=== PATIENT | female | born 1950 | race Caucasian/White ===

== ENCOUNTER 2021-12-12 09:08 | Inpatient (IN) | payer OTHER ==
[2021-12-12 10:56] VITALS: BMI 26.2
[2021-12-12] MEDS: Lactated Ringer's 1,000 ML IV SCH ×3 (11:32→21:59)
[2021-12-12] MEDS: HYDROcodone/Acetaminophen 5/325 mg Tablet PO PRN ×2 (13:12→19:28)
[2021-12-12] MEDS: metroNIDAZOLE 500 MG in Premix Bag 1 BAG IVPB SCH ×2 (13:13→21:55)
[2021-12-12] MEDS: Pantoprazole 40 MG VIAL IVP SCH (19:28)
[2021-12-12] MEDS: Ondansetron PF 4 MG/2 ML Vial IVP PRN (20:42)
[2021-12-13] MEDS: Lactated Ringer's 1,000 ML IV SCH ×5 (03:13→19:00)
[2021-12-13 04:28] LABS: ALT (SGPT) 22 U/L (8-55); AST (SGOT) 26 U/L (5-34); Albumin 3.4 g/dL (3.4-4.8); Alkaline Phosphatase 66 U/L (40-110); Anion Gap 12 mmol/L (10-20); BUN (Urea Nitrogen) 11 mg/dL (9.8-20.1); Bilirubin, Total 0.4 mg/dL (0.2-1.2); Calc. Creatinine Clearance 67 mL/min (70-130); Calcium 8.3 mg/dL (7.8-10.44); Carbon Dioxide 22 mmol/L (23-31); Chloride 109 mmol/L (98-107); Estimated GFR 86; Globulin 1.9 g/dL (2.4-3.5); Glucose 100 mg/dL (80-115); Potassium 3.7 mmol/L (3.5-5.1); Protein, Total 5.3 g/dL (5.8-8.1); Sodium 139 mmol/L (136-145)
[2021-12-13 05:03] LABS: #Eosinphils 0.3 thou/uL (0.0-0.7); #Lymphocytes 2.7 thou/uL (1.20-3.40); #Monocytes 0.6 thou/uL (0.11-0.59); %Basophils 0.3 % (0.0-1.0); %Eosinophils 2.8 % (0.0-10.0); %Lymphocytes 23.3 % (21.0-51.0); %Monocytes 5.4 % (0.0-10.0); %Neutrophils 68.2 % (42.0-75.0); Hemoglobin 11.9 g/dL (12.0-16.0); Mean Corpuscular HGB CONC 31.7 g/dL (32.0-36.0); Mean Corpuscular Hemoglobin 32.7 pg (27.0-31.0); Mean Platelet Volume 7.7 fL (7.4-10.4); Platelet Count 184 thou/uL (130-400); RBC Distribution Width 11.6 % (11.5-14.5); Red Blood Cell (RBC) Count 3.65 mill/uL (4.20-5.40); White Blood Cell (WBC) Count 11.8 thou/uL (4.8-10.8)
[2021-12-13] MEDS: metroNIDAZOLE 500 MG in Premix Bag 1 BAG IVPB SCH ×3 (05:55→21:19)
[2021-12-13] MEDS: Pantoprazole 40 MG VIAL IVP SCH ×2 (08:38→20:24)
[2021-12-13] MEDS: HYDROcodone/Acetaminophen 5/325 mg Tablet PO PRN (09:02)
[2021-12-13] MEDS: Ondansetron PF 4 MG/2 ML Vial IVP PRN (09:02)
[2021-12-13 12:07] LABS: Campy jejuni + coli by PCR Negative (Negative); STEC Shiga Toxin 1+2 Negative (Negative); Salmonella spp. by PCR Negative (Negative); Shigella spp + EIEC by PCR Negative (Negative)
[2021-12-13] MEDS ORDERED: Electrolyte Replacement Protocol 1 EACH FS SCH (16:30)
[2021-12-13] MEDS ORDERED: Electrolyte Replacement Protocol FS PRN (16:30)
[2021-12-13 16:58] LABS: Phosphorus 2.6 mg/dL (2.3-4.7)
[2021-12-13 17:00] LABS: Cardiac Risk 2.5 (Less than 4.5); Cholesterol 114 mg/dl (< 200 Desired); HDL Cholesterol 45 mg/dL (>60 Neg Risk); LDL Cholesterol, Calculated 51 mg/dL; Magnesium 1.7 mg/dL (1.6-2.6); Triglycerides 90 mg/dL (Less than 150)
[2021-12-13] MEDS ORDERED: Magnesium 2 GM/50 ML(in water) 2 GM in Premix Bag 1 BAG IVPB SCH (21:00)
[2021-12-14] MEDS: Lactated Ringer's 1,000 ML IV SCH ×4 (00:22→10:03)
[2021-12-14] MEDS: Acetaminophen 325 MG TAB PO PRN ×3 (02:49→16:06)
[2021-12-14 04:05] LABS: #Basophils 0.1 thou/uL (0.0-0.2); #Eosinphils 0.3 thou/uL (0.0-0.7); #Lymphocytes 2.7 thou/uL (1.20-3.40); #Monocytes 0.6 thou/uL (0.11-0.59); #Neutrophils 5.6 thou/uL (1.40-6.50); %Basophils 0.8 % (0.0-1.0); %Eosinophils 3.1 % (0.0-10.0); %Lymphocytes 29.3 % (21.0-51.0); %Monocytes 6.5 % (0.0-10.0); %Neutrophils 60.4 % (42.0-75.0); Hemoglobin 12.5 g/dL (12.0-16.0); Mean Corpuscular HGB CONC 32.6 g/dL (32.0-36.0); Mean Corpuscular Hemoglobin 33.6 pg (27.0-31.0); Mean Platelet Volume 7.9 fL (7.4-10.4); Platelet Count 185 thou/uL (130-400); RBC Distribution Width 11.6 % (11.5-14.5); Red Blood Cell (RBC) Count 3.71 mill/uL (4.20-5.40); White Blood Cell (WBC) Count 9.2 thou/uL (4.8-10.8)
[2021-12-14 04:27] LABS: Phosphorus 2.5 mg/dL (2.3-4.7)
[2021-12-14 04:30] LABS: ALT (SGPT) 25 U/L (8-55); AST (SGOT) 28 U/L (5-34); Albumin 3.3 g/dL (3.4-4.8); Alkaline Phosphatase 68 U/L (40-110); Anion Gap 11 mmol/L (10-20); BUN (Urea Nitrogen) 6 mg/dL (9.8-20.1); Bilirubin, Total 0.5 mg/dL (0.2-1.2); Calc. Creatinine Clearance 81 mL/min (70-130); Calcium 8.2 mg/dL (7.8-10.44); Carbon Dioxide 22 mmol/L (23-31); Chloride 109 mmol/L (98-107); Estimated GFR 94; Globulin 1.7 g/dL (2.4-3.5); Glucose 113 mg/dL (80-115); Lipase 527 U/L (8-78); Magnesium 2.1 mg/dL (1.6-2.6); Potassium 3.7 mmol/L (3.5-5.1); Sodium 138 mmol/L (136-145)
[2021-12-14] MEDS: metroNIDAZOLE 500 MG in Premix Bag 1 BAG IVPB SCH ×3 (05:47→21:37)
[2021-12-14] MEDS: Pantoprazole 40 MG VIAL IVP SCH ×2 (10:05→21:38)
[2021-12-14] MEDS ORDERED: Lactated Ringer's 1,000 ML IV SCH (11:49)
[2021-12-14] MEDS: Promethazine HCl 12.5 MG in Sodium Chloride 0.9% 50 ML IVPB PRN (15:45)
[2021-12-14] MEDS: Lisinopril 5 MG TAB PO SCH (21:34)
[2021-12-15 04:46] LABS: ALT (SGPT) 39 U/L (8-55); AST (SGOT) 52 U/L (5-34); Albumin 3.5 g/dL (3.4-4.8); Alkaline Phosphatase 94 U/L (40-110); Anion Gap 14 mmol/L (10-20); BUN (Urea Nitrogen) 8 mg/dL (9.8-20.1); Bilirubin, Total 0.6 mg/dL (0.2-1.2); Calc. Creatinine Clearance 0 mL/min (70-130); Calcium 8.5 mg/dL (7.8-10.44); Carbon Dioxide 19 mmol/L (23-31); Chloride 111 mmol/L (98-107); Estimated GFR 87; Globulin 2.1 g/dL (2.4-3.5); Glucose 90 mg/dL (80-115); Potassium 3.9 mmol/L (3.5-5.1); Protein, Total 5.6 g/dL (5.8-8.1); Sodium 140 mmol/L (136-145)
[2021-12-15] MEDS: metroNIDAZOLE 500 MG in Premix Bag 1 BAG IVPB SCH ×3 (05:11→21:44)
[2021-12-15] MEDS: Acetaminophen 325 MG TAB PO PRN ×3 (05:51→17:30)
[2021-12-15 06:22] LABS: Lipase 1309 U/L (8-78)
[2021-12-15 07:34] LABS: #Basophils 0.1 thou/uL (0.0-0.2); #Eosinphils 0.5 thou/uL (0.0-0.7); #Lymphocytes 2.1 thou/uL (1.20-3.40); #Monocytes 0.9 thou/uL (0.11-0.59); #Neutrophils 6.7 thou/uL (1.40-6.50); %Basophils 0.8 % (0.0-1.0); %Eosinophils 4.5 % (0.0-10.0); %Lymphocytes 20.8 % (21.0-51.0); %Monocytes 8.4 % (0.0-10.0); %Neutrophils 65.5 % (42.0-75.0); Mean Corpuscular Hemoglobin 32.8 pg (27.0-31.0); Mean Platelet Volume 8.3 fL (7.4-10.4); Platelet Count 185 thou/uL (130-400); RBC Distribution Width 11.6 % (11.5-14.5); Red Blood Cell (RBC) Count 3.65 mill/uL (4.20-5.40); White Blood Cell (WBC) Count 10.3 thou/uL (4.8-10.8)
[2021-12-15] MEDS ORDERED: Lactated Ringer's 1,000 ML IV SCH (08:30)
[2021-12-15] MEDS: Lisinopril 5 MG TAB PO SCH ×2 (09:49→20:20)
[2021-12-15] MEDS: Pantoprazole 40 MG VIAL IVP SCH ×2 (09:50→20:20)
[2021-12-15 09:51] VITALS: BP 125/76
[2021-12-15] MEDS ORDERED: Cetirizine HCl 10 MG TAB PO PRN (11:05)
[2021-12-15] MEDS ORDERED: Loratadine 10 MG TAB PO PRN (11:10)
[2021-12-15] MEDS: Promethazine HCl 12.5 MG in Sodium Chloride 0.9% 50 ML IVPB PRN ×2 (17:24→21:40)
[2021-12-15] MEDS ORDERED: Montelukast Sodium 10 mg Tablet PO SCH (21:00)
[2021-12-16] MEDS: Promethazine HCl 12.5 MG in Sodium Chloride 0.9% 50 ML IVPB PRN (06:51)
[2021-12-16] MEDS: metroNIDAZOLE 500 MG in Premix Bag 1 BAG IVPB SCH ×2 (06:51→13:48)
[2021-12-16 07:04] LABS: #Basophils 0.1 thou/uL (0.0-0.2); #Eosinphils 0.8 thou/uL (0.0-0.7); #Lymphocytes 2.2 thou/uL (1.20-3.40); #Monocytes 0.7 thou/uL (0.11-0.59); #Neutrophils 4.8 thou/uL (1.40-6.50); %Basophils 0.7 % (0.0-1.0); %Eosinophils 9.3 % (0.0-10.0); %Lymphocytes 25.2 % (21.0-51.0); %Monocytes 8.5 % (0.0-10.0); %Neutrophils 56.2 % (42.0-75.0); Mean Corpuscular HGB CONC 33.1 g/dL (32.0-36.0); Mean Corpuscular Hemoglobin 33.7 pg (27.0-31.0); Platelet Count 195 thou/uL (130-400); RBC Distribution Width 11.4 % (11.5-14.5); Red Blood Cell (RBC) Count 3.85 mill/uL (4.20-5.40); White Blood Cell (WBC) Count 8.6 thou/uL (4.8-10.8)
[2021-12-16 07:28] LABS: ALT (SGPT) 40 U/L (8-55); AST (SGOT) 49 U/L (5-34); Albumin 3.5 g/dL (3.4-4.8); Alkaline Phosphatase 84 U/L (40-110); Anion Gap 12 mmol/L (10-20); BUN (Urea Nitrogen) 8 mg/dL (9.8-20.1); Bilirubin, Total 0.5 mg/dL (0.2-1.2); Calc. Creatinine Clearance 75 mL/min (70-130); Calcium 8.6 mg/dL (7.8-10.44); Carbon Dioxide 22 mmol/L (23-31); Chloride 112 mmol/L (98-107); Estimated GFR 88; Glucose 107 mg/dL (80-115); Potassium 3.6 mmol/L (3.5-5.1); Protein, Total 5.5 g/dL (5.8-8.1); Sodium 142 mmol/L (136-145)
[2021-12-16 07:41] LABS: Lipase 1205 U/L (8-78)
[2021-12-16] MEDS ORDERED: Estradiol 1 MG TAB PO SCH (09:00)
[2021-12-16] MEDS ORDERED: Non-Formulary Item 1 EACH (Ergocalciferol (Vitamin D2) [Vitamin D2] 50 MCG Capsule) PO SCH (09:00)
[2021-12-16] MEDS ORDERED: Cholecalciferol 1,000 UNITS (25 MCG) TAB PO SCH (09:00)
[2021-12-16] MEDS: Pantoprazole 40 MG VIAL IVP SCH (09:51)
[2021-12-16] MEDS: Lisinopril 5 MG TAB PO SCH (09:51)
[2021-12-16 12:18] VITALS: TEMP 97.8
== END 2021-12-16 17:15 | disposition home or self-care (01) | DRG 872 ==
LOC: IMCU/EMU 09:49
PROVIDERS: ADMIT Family Medicine; ATTEND Family Medicine
DX: A41.9 Sepsis, unspecified organism (principal); R65.20 Severe sepsis without septic shock; K52.89 Other specified noninfective gastroenteritis and colitis; I08.1 Rheumatic disorders of both mitral and tricuspid valves; R00.1 Bradycardia, unspecified; J42 Unspecified chronic bronchitis; I10 Essential (primary) hypertension; R94.5 Abnormal results of liver function studies; Z88.2 Allergy status to sulfonamides; Z91.040 Latex allergy status; Z91.010 Allergy to peanuts; Z79.899 Other long term (current) drug therapy; Z90.710 Acquired absence of both cervix and uterus; Z90.89 Acquired absence of other organs; Z98.51 Tubal ligation status
CPT/HCPCS: 36415; 80053; 80061; 83630; 83690; 83735; 84100; 84443; 85025; 87324; 87328; 87329; 87449; 87505; 93005; 93010; 93017; 93306; C9113; J0744; J2405; J2550; J3475; J7120